=== PATIENT | female | born 1995 | race Two or more races ===

== ENCOUNTER 2019-10-02 17:37 | Emergency (ER) | payer BC ==
[~2019-10-02] VITALS: Ht 154.9 cm; Wt 59.0 kg
--- NOTE | 2019-10-02 18:02 | NUR ---
Patient is AOx4, ambulated to bathroom with steady gait. Urine specimen was requested from patient.
[2019-10-02] MEDS ORDERED: BIRTH CONTROL (18:03)
[2019-10-02] MEDS ORDERED: OMEP20CA11 PO (18:03)
[2019-10-02] MEDS ORDERED: ONDANSETRON ODT 4 MG TAB.RAPDIS ONE (18:34)
[2019-10-02] MEDS ORDERED: ONDANSETRON ODT 4 MG TAB.RAPDIS SL ONE (18:45)
--- NOTE | 2019-10-02 19:00 | NUR ---
Assumed care of patient. No acute distress noted. Pending PO challenge @ 1915 then d/c home.
--- NOTE | 2019-10-02 19:19 | NUR ---
Patient discharged to home in stable conditon. Written and verbal after care instructions given. Patient verbalizes understanding of instructions. Ambulated from ER with stable gait. All belongings with patient. Driven home by significant other in private vehicle.
[2019-10-02 19:22] VITALS: BP 111/68
== END 2019-10-02 19:23 | disposition home or self-care (01) ==
LOC: ER 17:49
DX: F10.129 Alcohol abuse with intoxication, unspecified (principal); R11.2 Nausea with vomiting, unspecified; Z79.899 Other long term (current) drug therapy; Y90.9 Presence of alcohol in blood, level not specified
CPT/HCPCS: A4663; Q0162